=== PATIENT | female | born 1955 | race Caucasian/White ===

== ENCOUNTER → 2017-11-21 19:44 | Outpatient (CLI) | payer BC ==
[2014-07-07 15:37] VITALS: BMI 35.2
[~2017-11-21 19:44] MED LIST: HYDROCODON-ACE1 EAC7 PO; PREMARIN45 GM VG; ZESTRIL40 MG PO; ZYRTEC10 MG PO
== END | disposition home or self-care (01) ==
LOC: D.MAMMO 11:45
DX: Z12.31 Encounter for screening mammogram for malignant neoplasm of breast (principal)

== ENCOUNTER → 2019-05-29 18:42 | Outpatient (CLI) | payer BC ==
[2014-07-07 15:37] VITALS: BMI 35.2
== END ==
LOC: D.MAMMO 16:15
PROVIDERS: ATTEND Family Medicine
DX: Z12.31 Encounter for screening mammogram for malignant neoplasm of breast (principal)